=== PATIENT | male | born 1980 | race Caucasian/White ===

== ENCOUNTER 2023-01-07 11:51 | Emergency (ER) | payer OTHER ==
[~2023-01-07] VITALS: Ht 167.6 cm; Wt 73.0 kg
--- NOTE | 2023-01-07 11:53 | NUR ---
AMBULATED WITH A CANE TO ER BED 2
[2023-01-07 11:56] VITALS: BP 137/66
[2023-01-07 12:03] VITALS: BP 144/83
[2023-01-07] MEDS ORDERED: ACET-10509 PO (12:47)
[2023-01-07] MEDS ORDERED: IBUP-2213 PO (12:47)
== END 2023-01-07 13:14 | disposition home or self-care (01) ==
LOC: MED 11:51
DX: S82.451A Displaced comminuted fracture of shaft of right fibula, initial encounter for closed fracture (principal); W34.09XA Accidental discharge from other specified firearms, initial encounter; Y93.89 Activity, other specified; Y92.89 Other specified places as the place of occurrence of the external cause; Y99.8 Other external cause status
CPT/HCPCS: 29505; 73590; 99283